=== PATIENT | female | born 1970 | race African-American/Black ===

== ENCOUNTER 2024-10-15 12:15 | Emergency (ER) | payer MEDICAID ==
[~2024-10-15] VITALS: Ht 170.2 cm; Wt 121.0 kg
[2024-10-15 12:22] VITALS: O2SAT 100
[2024-10-15] MEDS ORDERED: IBUP-2028 MT (13:21)
[2024-10-15] MEDS ORDERED: FLUT15.844 BOTHNSTRLS (13:21)
[2024-10-15] MEDS ORDERED: PSEU-224 MT (13:21)
[2024-10-15 14:01] VITALS: BP 140/83; PULSE 101; RESP 20; TEMP 37; O2SAT 100
== END 2024-10-15 14:03 | disposition home or self-care (01) ==
LOC: ER 12:15
DX: H69.92 Unspecified Eustachian tube disorder, left ear (principal); J30.9 Allergic rhinitis, unspecified; J34.3 Hypertrophy of nasal turbinates; I10 Essential (primary) hypertension; E11.9 Type 2 diabetes mellitus without complications
CPT/HCPCS: 99291